=== PATIENT | male | born 1935 | race Caucasian/White ===

== ENCOUNTER 2017-11-15 11:23 | Emergency (ER) | payer OTHER ==
[~2017-11-15] VITALS: Ht 180.3 cm; Wt 88.0 kg
[~2017-11-15 11:23] MED LIST: ALLERGY OTC; CENTRUM SILVER1 EAC3 PO; CLONAZEPAM; GLUCOTEN CAPLE1 EACH PO; IBUPROFEN; KEFLEX500 MG PO; LIPITOR; PROZAC; TOPROL; [UNRECOGNIZED DRUG - OTHER]
[2017-11-15 12:37] LABS: HEMATOCRIT 43.4 % (38.0-50.0); HEMOGLOBIN 15.3 G/DL (12.5-16.6); MCH 34.6 PG (29.0-34.0); MCHC 35.3 G/DL (30.0-36.0); MCV 98.2 FL (86-99); PLATELET COUNT 212 K/uL (156-360); RBC DIS.WIDTH-SD 43.5 % (39-53); RED BLOOD COUNT 4.42 M/uL (4.00-5.50); WHITE BLOOD COUNT 6.8 K/uL (4.1-10.2)
[2017-11-15 12:51] LABS: CHLORIDE 102 mEq/L (99-109); POTASSIUM 3.7 mEq/L (3.7-5.4); SODIUM 136 mEq/L (136-147)
[2017-11-15 12:54] LABS: GLUCOSE 104 mg/dL (70-99); TOTAL PROTEIN 6.9 g/dL (6.4-8.3)
[2017-11-15 12:57] LABS: ALKALINE PHOSPHATASE 92 IU/L (3-129); GFR ESTIMATE (CALCULATED) > 59 mL/min/ (58.99-99999)
[2017-11-15 12:58] LABS: UREA NITROGEN (BUN) 15 mg/dL (9-23)
[2017-11-15 12:59] LABS: AST (GOT) 24 IU/L (2-34)
[2017-11-15 13:00] LABS: ALT (GPT) 28 IU/L (3-49)
[2017-11-15 14:18] LABS: APPEARANCE CLEAR ((CLEAR)); BILIRUBIN NEGATIVE; BLOOD NEGATIVE; COLOR STRAW ((YELLOW)); GLUCOSE (STRIP) NEGATIVE; KETONES NEGATIVE; LEUKOCYTES NEGATIVE; NITRITE NEGATIVE; PROTEIN (STRIP) NEGATIVE; SPECIFIC GRAVITY 1.004 (1.000-1.030); UCUL ADDED? NO; UROBILINOGEN 0.2 MG/DL (0.2-1.0)
[2017-11-15 14:37] LABS: LIPASE 70 U/L (1.0-51.0)
[2017-11-15 14:42] LABS: TROP-I INTERPRETATION NEGATIVE; TROPONIN-I 0.02 ng/mL (0.0-0.30)
[2017-11-15] MEDS ORDERED: FIORICET 50-301 EAC1 PO (17:44)
[2017-11-15 18:24] VITALS: BP 143/81
== END 2017-11-15 18:24 | disposition home or self-care (01) ==
LOC: EME 11:23
DX: G44.209 Tension-type headache, unspecified, not intractable (principal); R03.0 Elevated blood-pressure reading, without diagnosis of hypertension; R35.0 Frequency of micturition; Z92.3 Personal history of irradiation; Z90.79 Acquired absence of other genital organ(s); Z95.5 Presence of coronary angioplasty implant and graft; Z88.0 Allergy status to penicillin
CPT/HCPCS: 70450; 70496; 80053; 81003; 82945; 83690; 84157; 84484; 85027; 87070; 87205; 89051; 93005; 99281; 99285; J7030